=== PATIENT | male | born 1980 | race Caucasian/White ===

== ENCOUNTER 2021-12-20 11:43 | Outpatient (CLI) | payer OTHER ==
[2021-12-20 12:00] LABS: BASOPHILS % (AUTO) 0.3 %; EOSINOPHILS % (AUTO) 0.6 %; HCT - HEMATOCRIT 42.9 % (42.0-52.0); HGB - HEMOGLOBIN 14.5 g/dL (14.0-18.0); LYMPHOCYTES # (AUTO) 1.4 10^3/uL (1.5-3.5); LYMPHOCYTES % (AUTO) 38.1 %; MEAN CORPUSCULAR HEMOGLOBIN 30.3 pg (27.0-31.0); MEAN CORPUSCULAR HGB CONC 33.8 g/dL (32.0-36.0); MEAN CORPUSCULAR VOLUME 89.6 fL (80.0-94.0); MEAN PLATELET VOLUME 9.9 fL (7.4-11.4); MONOCYTES # (AUTO) 0.3 10^3/uL (0.0-1.0); MONOCYTES % (AUTO) 7.3 %; NEUTROPHILS # (AUTO) 1.9 10^3/uL (1.5-6.6); NEUTROPHILS % (AUTO) 53.4 %; PLT - PLATELET COUNT 180 10^3/uL (130-450); RED BLOOD COUNT 4.79 10^6/uL (4.70-6.10); RED CELL DISTRIBUTION WIDTH 11.5 % (12.0-15.0); WHITE BLOOD COUNT 3.6 x10^3/uL (4.8-10.8)
[2021-12-20 12:12] LABS: ALBUMIN 4.5 g/dL (3.2-5.5); ALBUMIN/GLOBULIN RATIO 1.4 (1.0-2.2); BILIRUBIN,TOTAL 0.6 mg/dL (0.2-1.0); CALCIUM 9.7 mg/dL (8.5-10.3); POTASSIUM 4.4 mmol/L (3.5-5.0); TOTAL PROTEIN 7.7 g/dL (6.7-8.2)
== END 2021-12-20 11:44 | disposition home or self-care (01) ==
LOC: LAB 11:43
PROVIDERS: ATTEND Surgery
DX: K40.91 Unilateral inguinal hernia, without obstruction or gangrene, recurrent (principal)
CPT/HCPCS: 36415; 80053; 85025

== ENCOUNTER 2021-12-27 06:26 | Day surgery (SDC) | payer OTHER ==
[2021-12-27] MEDS ORDERED: LACTATED RINGERS 1,000 ML IV ONE ×2 (06:30→09:16)
[2021-12-27] MEDS ORDERED: CEFAZOLIN SODIUM IN 0.9 % NACL 2 GM/50 ML BAG IV ONE (06:40)
--- NOTE | 2021-12-27 07:01 | ANESTHESIA ---
Pre-Anesthesia VS, & Labs - Diagnosis left inguinal hernia - Procedure Open left inguinal hernia repair with mesh Vital Signs: Temp Pulse Resp BP Pulse Ox 37 C 72 16 143/87 H 100 12/27/21 06:41 12/27/21 06:41 12/27/21 06:41 12/27/21 06:41 12/27/21 06:41 Height: 6 ft 2 in Weight (kg): 104.5 kg Body Mass Index: 29.5 BMI Classification: Overweight - NPO >8 hours - Lab Results Lab results reviewed: Yes Home Medications and Allergies Home Medications: Ambulatory Orders Ibuprofen [Motrin] 600 mg PO Q6H PRN 12/13/21 Ibuprofen [Motrin] 600 mg PO Q6H PRN 12/13/21 Allergies/Adverse Reactions: Allergies Allergy/AdvReac Type Severity Reaction Status Date / Time No Known Drug Allergies Allergy Verified 12/13/21 12:33 Anes History & Medical History - Anesthetic History Anesthesia Complications: reports: No previous complications Family history of Anesthesia Complications: Denies Family history of Malignant Hyperthermia: Denies - Medical History Cardiovascular: reports: None Pulmonary: reports: None Gastrointestinal: reports: None Urinary: reports: None Musculoskeletal: reports: None Endocrine/Autoimmune: reports: None Skin: reports: None Psychosocial: reports: Alcohol - Surgical History General: reports: Other Exam General: Alert, Oriented x3, Cooperative, No acute distress Dental: WNL Mouth Openin Fingerbreadth Neck Mobility: Normal Mallampati classification: I Plan Anesthesia Type: General, MAC Consent for Procedure(s) Verified and Reviewed: Yes Code Status: Attempt Resuscitation ASA classification: 1-Healthy patient Is this case an emergency?: No
[2021-12-27] MEDS ORDERED: ONDANSETRON 4 MG/2 ML VIAL IVP PRN ×2 (07:02→09:12)
[2021-12-27] MEDS ORDERED: MORPHINE 2 MG/ML CARPUJECT IVP PRN (07:02)
[2021-12-27] MEDS ORDERED: NALOXONE 0.4 MG/ML VIAL IVP PRN (07:02)
[2021-12-27] MEDS ORDERED: ATROPINE ABBOJECT 1 MG/10 ML SYRINGE IVP PRN (07:02)
[2021-12-27] MEDS ORDERED: fentaNYL 100 MCG/2 ML VIAL IVP PRN (07:02)
[2021-12-27] MEDS ORDERED: METOCLOPRAMIDE 10 MG/2 ML VIAL IVP PRN (07:02)
[2021-12-27] MEDS ORDERED: HYDROmorphone 0.5 MG/0.5 ML SYRINGE IVP PRN ×2 (07:02→09:12)
[2021-12-27] MEDS ORDERED: ePHEDrine 50 MG/ML VIAL IVP PRN (07:02)
[2021-12-27] MEDS ORDERED: KETAMINE 500 MG/10 ML VIAL ONE (07:17)
[2021-12-27] MEDS ORDERED: PROPOFOL 500 MG/50 ML 500 MG/50 ML VIAL ONE ×3 (07:17→08:46)
[2021-12-27] MEDS ORDERED: LIDOCAINE-MPF 2% 5 ML VIAL ONE (07:17)
[2021-12-27] MEDS ORDERED: MIDAZOLAM 2 MG/2 ML VIAL ONE (07:17)
[2021-12-27] MEDS ORDERED: KETOROLAC 30 MG/ML VIAL ONE (07:17)
[2021-12-27] MEDS ORDERED: LIDOCAINE 1% 50 ML MDV ONE (07:20)
[2021-12-27] MEDS ORDERED: BUPIVACAINE 0.25% PF 10 ML VIAL ONE ×2 (07:20→08:10)
[2021-12-27] MEDS ORDERED: GLYCOPYRROLATE 1 MG/5 ML VIAL ONE (07:21)
[2021-12-27] MEDS ORDERED: SODIUM CHLORIDE 0.9% 10 ML VIAL IVP ONE (07:21)
[2021-12-27] MEDS ORDERED: LACTATED RINGERS 1,000 ML IV SCH (08:00)
[2021-12-27] MEDS ORDERED: BUPIVACAINE 0.25% PF 10 ML VIAL SUBQ ONE (08:00)
[2021-12-27] MEDS ORDERED: LIDOCAINE 1% 50 ML MDV SUBQ ONE (08:00)
[2021-12-27] MEDS ORDERED: oxyCODONE 5 MG TABLET PO PRN (09:12)
--- NOTE | 2021-12-27 09:20 | OPERATIVE REPORT ---
Operative Report - General Procedure Date: 12/27/21 Planned Procedure: open repair recurrent left inguinal hernia Pre-Op Diagnosis: recurrent left inguinal hernia Procedure Performed: open repair recurrent left inguinal hernia Post Op Diagnosis: same - Procedure Note Primary Surgeon: david silva md Anesthesia Technique: Local, MAC Pathology: ilioinguinal nerve removed not sent Estimated Blood Loss (mL): 5 Drain/Tube Type: Other (none) Indications: painful recurrent hernia Findings: prior mesh repair. mesh had been placed preperitoneal under the floor. ilioinguinal nerve had been divided previously and was scared to the inguinal ligament Complications: none - Other Other Information/Narrative: Patient was properly identified brought to the operating room and placed in supine position. Sequential compression devices were placed. Monitored anesthesia care and sedation was given. He was prepped and draped in a sterile fashion and given preoperative antibiotics. Local anesthetic was given throughout the procedure. A 5 cm incision was made in the direction of Bernadette's lines just cephalad of the pubic tubercle. Dissection proceeded with cutting current cautery. Dissection proceeded down to the aponeurosis. The aponeurosis was opened in the direction of its fibers and extended to the external ring. The ilioinguinal nerve was identified. It was previously divided and was densely scarred to the inguinal ligament. It was removed sharply back to musculature. Cord structures were mobilized and brought up. The nerves otherwise were carefully protected and preserved. Cord structures were mobilized and brought up. A direct hernia was identified. The direct bulge was mobilized away from surrounding structures. It was reduced and floor repaired with a 2-0 silk pursestring suture. There was palpable mesh deep to the floor. This was left intact. There was no indirect inguinal hernia. Preperitoneal fat was removed. The base was tied with 2 O vicryl. Polypropylene mesh was cut to size and with tails. The mesh was secured with multiple interrupted 0 Ethibond sutures. She was placed along the pubic tubercle, Azam's ligament area and along the shelving border of Poupart's ligament. Sutures were placed medially along the abdominal wall musculature and internal oblique. The medial tail of the mesh was secured to the shelving border of Poupart's ligament with 3 interrupted 0 ethibond sutures recreating the internal ring of appropriate size. An additional suture was placed in the crotch of the mesh recreating an internal ring of appropriate size. Aponeurosis was closed with a running 2-0 Vicryl suture. The opposite was closed with interrupted 3-0 Vicryl suture. Buried interrupted subdermal 3-0 Vicryl sutures were then placed. And was closed with a running 4-0 Monocryl subcuticular suture. Dressing was applied. Patient was awakened and brought to recovery in good condition.
--- NOTE | 2021-12-27 09:34 | ANESTHESIA POST OP EVALUATION ---
Anesthesia Post Eval - Post Anesthesia Eval Vitals: Last Vital Signs Temp 36.9 C 12/27/21 09:28 Pulse 52 L 12/27/21 09:28 Resp 16 12/27/21 09:28 BP 135/81 H 12/27/21 09:28 Pulse Ox 99 12/27/21 09:28 CV Function Including HR & BP: Stable Pain Control: Satisfactory Nausea & Vomiting: Negative Mental Status: Baseline Respiratory Status: Airway Patent Hydration Status: Satisfactory Anesthesia Complications: None
[2021-12-27 09:53] VITALS: BP 136/90
== END 2021-12-27 06:27 | disposition home or self-care (01) ==
LOC: SDS 06:26
PROVIDERS: ATTEND Surgery
PROC: 0YU60JZ Supplement Left Inguinal Region with Synthetic Substitute, Open Approach (ICD-10-PCS; principal; 2021-12-27 07:30)
DX: K40.91 Unilateral inguinal hernia, without obstruction or gangrene, recurrent (principal)
CPT/HCPCS: 49520; A9270; C1781; J0690; J7120